=== PATIENT | male | born 1960 | race Caucasian/White ===

== ENCOUNTER 2021-05-10 13:59 | Emergency (ER) | payer OTHER ==
[2021-05-10] MEDS ORDERED: diphenhydrAMINE 50 MG/ML SDV IVPUSH ONE (14:06)
[2021-05-10] MEDS ORDERED: methylPREDNISolone Sodium Succinate 125 MG/2 ML SDV IV ONE (14:06)
[2021-05-10] MEDS ORDERED: Sodium Chloride 0.9% 1,000 ML IV SCH (14:15)
--- NOTE | 2021-05-10 14:34 | EDM.PDOC ---
ED HPI GENERAL MEDICAL PROBLEM - General Chief Complaint: Bite:Animal, Insect Stated Complaint: BEE STINGS Time Seen by Provider: 05/10/21 14:07 Source of Information: Reports: Patient History Limitations: Reports: No Limitations - History of Present Illness INITIAL COMMENTS - FREE TEXT/NARRATIVE: 61 yo male presents following multiple bee/wasp stings. hives covering back and axillary, left hand and wrist swelling. denies oral swelling. denies difficulty breathing. - Related Data Allergies Allergy/AdvReac Type Severity Reaction Status Date / Time azithromycin Allergy Facial Verified 05/10/21 14:20 [From Zithromax Z-Richard] Swelling cephalexin Allergy Anaphylactic Verified 05/10/21 14:20 Shock ibuprofen Allergy Facial Verified 05/10/21 14:20 Swelling Home Meds: Home Meds Aspirin [Halfprin] 81 mg PO DAILY 05/10/21 [History] Fenofibrate 160 mg PO DAILY 05/10/21 [History] Losartan [Cozaar] 50 mg PO BID 05/10/21 [History] Omeprazole 20 mg PO DAILY 05/10/21 [History] Sertraline [Zoloft] 50 mg PO DAILY 05/10/21 [History] Simvastatin 20 mg PO DAILY 05/10/21 [History] metFORMIN [Glucophage] 500 mg PO BIDMEALS 05/10/21 [History] Past Medical History Cardiovascular History: Reports: High Cholesterol, Hypertension, Other (See Johanna ruelas) Respiratory History: Reports: Sleep Apnea Other Respiratory History: cpap Gastrointestinal History: Reports: GERD Psychiatric History: Reports: Depression Endocrine/Metabolic History: Reports: Diabetes, Type II - Infectious Disease History Infectious Disease History: Reports: Chicken Pox, Mumps, Shingles - Past Surgical History Head Surgeries/Procedures: Reports: None HEENT Surgical History: Reports: Adenoidectomy, Tonsillectomy Cardiovascular Surgical History: Reports: None Respiratory Surgical History: Reports: None GI Surgical History: Reports: None Endocrine Surgical History: Reports: None Dermatological Surgical History: Reports: None Social & Family History - Tobacco Use Tobacco Use Status *Q: Never Tobacco User Second Hand Smoke Exposure: No - Caffeine Use Caffeine Use: Reports: Coffee - Alcohol Use Days Per Week of Alcohol Use: 2 Number of Drinks Per Day: 2 Total Drinks Per Week: 4 - Recreational Drug Use Recreational Drug Use: No ED ROS GENERAL - Review of Systems Review Of Systems: See Below Constitutional: Denies: Fever, Chills Respiratory: Denies: Shortness of Breath, Wheezing Cardiovascular: Denies: Chest Pain Skin: Reports: Erythema, Urticaria Neurological: Denies: Dizziness, Headache ED EXAM, ANIMAL BITE - Physical Exam Exam: See Below General Appearance: Alert, WD/WN, No Apparent Distress Head: Atraumatic, Normocephalic Respiratory/Chest: No Respiratory Distress, Lungs Clear, Normal Breath Sounds. No: Crackles, Rhonchi, Wheezing Cardiovascular: Regular Rate, Rhythm, No Murmur GI/Abdominal: Soft, Non-Tender Neurological: Alert, Oriented Skin Exam: Normal Color, Other (axillary uticaria, eythema to face and neck, hives at sting sites on wrist, neck and trunk) Course - Vital Signs Last Recorded V/S: Last Vital Signs Temp 36.8 C 05/10/21 14:44 Pulse 78 05/10/21 15:59 Resp 16 05/10/21 14:44 BP 111/67 05/10/21 15:59 Pulse Ox 96 05/10/21 15:59 - Orders/Labs/Meds Orders: Active Orders 24 hr Category Date Time Status Sodium Chloride 0.9% [Normal Saline] 1,000 ml Med 05/10/21 14:15 Active IV .BOLUS Medication Orders Sodium Chloride (Normal Saline) 1,000 mls @ 500 mls/hr IV .BOLUS RL Last Admin: 05/10/21 14:17 Dose: 500 mls/hr Documented by: GRACIE Meds: Medications Generic Name Dose Route Start Last Admin Trade Name Freq PRN Reason Stop Dose Admin Sodium Chloride 1,000 mls @ 500 mls/hr 05/10/21 14:15 05/10/21 14:17 Normal Saline IV 500 mls/hr .BOLUS RL Administration Discontinued Medications Generic Name Dose Route Start Last Admin Trade Name Freq PRN Reason Stop Dose Admin Diphenhydramine HCl 50 mg 05/10/21 14:06 05/10/21 14:12 Diphenhydramine 50 Mg/Ml Sdv IVPUSH 05/10/21 14:07 50 mg ONETIME ONE Administration Famotidine 40 mg 05/10/21 15:54 05/10/21 15:59 Famotidine 20 Mg/2 Ml Sdv IVPUSH 05/10/21 15:55 40 mg ONETIME ONE Administration Hydroxyzine HCl 50 mg 05/10/21 14:45 05/10/21 14:52 Hydroxyzine Hcl 25 Mg Tab PO 05/10/21 14:46 50 mg ONETIME ONE Administration Methylprednisolone Sodium Succinate 125 mg 05/10/21 14:06 05/10/21 14:11 Methylprednisolone Sodium Succinate 125 Mg/2 Ml Sdv IV 05/10/21 14:07 125 mg ONETIME ONE Administration Methylprednisolone Sodium Succinate 125 mg 05/10/21 15:54 05/10/21 16:00 Methylprednisolone Sodium Succinate 125 Mg/2 Ml Sdv IVPUSH 05/10/21 15:55 125 mg ONETIME ONE Administration - Re-Assessments/Exams Free Text/Narrative Re-Assessment/Exam: 05/10/21 16:41 61 yo male presents to the ER in moderate distress following multiple stings. swelling at vector sites, axillary erythema and hives, erythemic face. IV established solumedrol, NS and Benadryl given, he continued to itch repeat solumedrol for a total dosing of 250 mg. erythema of face resolved, axillary erythema and hives resolved. pt will be discharged home prednisone taper and with an epi auto inject Departure - Departure Time of Disposition: 16:44 Disposition: Home, Self-Care 01 Condition: Good Clinical Impression: Sting from hornet, wasp, or bee Qualifiers: Encounter type: initial encounter Injury intent: accidental or unintentional Qualified Code(s): T63.451A - Toxic effect of venom of hornets, accidental (unintentional), initial encounter; T63.441A - Toxic effect of venom of bees, accidental (unintentional), initial encounter; T63.461A - Toxic effect of venom of wasps, accidental (unintentional), initial encounter - Discharge Information *PRESCRIPTION DRUG MONITORING PROGRAM REVIEWED*: Not Applicable *COPY OF PRESCRIPTION DRUG MONITORING REPORT IN PATIENT NAVYA: Not Applicable Instructions: Bee, Wasp, or Hornet Sting, Adult Referrals: PCP,None [Primary Care Provider] - Forms: ED Department Discharge Additional Instructions: prednisone 20 mg tapering dosing - 2 tablets for 3 days 1 tablet for 2 days Benadryl as needed for itcning increase fluid intake with goal of 1.5-2 liters per day epi auto-inject for future reactions us this if the reaction progresses to swelling of the tongue, throat or oral airway. Sepsis Event Note (ED) - Focused Exam Vital Signs: Vital Signs Temp Pulse Resp BP Pulse Ox 05/10/21 15:59 78 111/67 96 05/10/21 15:44 82 129/61 96 05/10/21 15:29 82 127/61 95 05/10/21 15:14 81 114/63 94 L 05/10/21 14:59 83 120/63 94 L 05/10/21 14:44 36.8 C 89 16 125/66 93 L 05/10/21 14:39 36.8 C 93 16 122/71 95 - My Orders Last 24 Hours: My Active Orders 05/10/21 14:15 Sodium Chloride 0.9% [Normal Saline] 1,000 ml IV .BOLUS - Assessment/Plan Last 24 Hours: My Active Orders 05/10/21 14:15 Sodium Chloride 0.9% [Normal Saline] 1,000 ml IV .BOLUS
[2021-05-10] MEDS ORDERED: hydrOXYzine HCl 25 MG Tab PO ONE (14:45)
[2021-05-10] MEDS ORDERED: methylPREDNISolone Sodium Succinate 125 MG/2 ML SDV IVPUSH ONE (15:54)
[2021-05-10] MEDS ORDERED: Famotidine 20 MG/2 ML SDV IVPUSH ONE (15:54)
== END 2021-05-10 16:55 | disposition home or self-care (01) ==
LOC: JP.ED 13:59
DX: T63.451A Toxic effect of venom of hornets, accidental (unintentional), initial encounter (principal); T63.441A Toxic effect of venom of bees, accidental (unintentional), initial encounter; E78.00 Pure hypercholesterolemia, unspecified; I10 Essential (primary) hypertension; K21.9 Gastro-esophageal reflux disease without esophagitis; E11.9 Type 2 diabetes mellitus without complications; Z79.84 Long term (current) use of oral hypoglycemic drugs; Z88.1 Allergy status to other antibiotic agents; Z88.6 Allergy status to analgesic agent; Z79.82 Long term (current) use of aspirin; Z79.899 Other long term (current) drug therapy
CPT/HCPCS: 96374; 96375; 96376; 99282; A9270; J1200; J2930; J3490; J7030